=== PATIENT | male | born 1970 | race Caucasian/White ===

== ENCOUNTER 2016-03-11 05:02 | Emergency (ER) | payer MEDICARE, OTHER ==
[2016-03-11] MEDS ORDERED: diphenhydrAMINE HCL 50 MG/ML VIAL IV ONE (05:19)
[2016-03-11] MEDS ORDERED: PROMETHAZINE HCL 50 MG/ML AMPUL IM ONE (05:19)
[2016-03-11] MEDS ORDERED: KETOROLAC TROMETHAMINE 60 MG/2 ML VIAL IM ONE ×2 (05:19→05:21)
[2016-03-11] MEDS ORDERED: diphenhydrAMINE HCL 50 MG/ML VIAL ONE (05:21)
[2016-03-11] MEDS ORDERED: PROMETHAZINE HCL 25 MG/ML AMPUL ONE (05:21)
--- NOTE | 2016-03-11 05:25 | ERNOTE ---
Headache ER HPI - Narrative Date of Service: 03/11/16 - General Presenting Symptoms: headache Time Seen by Provider: 03/11/16 05:17 Source: patient Exam Limitations: no limitations - Immun/Allergies/Home Medications Immunizations: IMMUNIZATION HX Immunizations Up to Date Yes History of Influenza Vaccine Yes Hx Pneumococcal Vaccination No Allergies/Adverse Reactions: Allergies divalproex sodium [From Depakote] Allergy (Verified 02/05/16 13:15) gabapentin Allergy (Verified 02/05/16 13:15) nalbuphine HCl [From Nubain] Allergy (Verified 02/05/16 13:15) topiramate [From Topamax] Allergy (Verified 02/05/16 13:15) Home Medications: HOME MEDICATIONS Phenytoin Sodium Extended [Dilantin] 30 mg PO DAILY 08/28/15 [Last Taken Unknown ] Propranolol HCl [Inderal] 10 mg PO TID 08/28/15 [Last Taken Unknown] - History of Present Illness Narrative: 45-year-old with a history of migraine headaches states he awoke with a severe migraine headache associated with nausea and vomiting. He is yelling out and rocking stating that his headache is severe but no different than previous migraines. Denies other constitutional signs or symptoms Review of Systems - Review of Systems Constitutional: Present: no symptoms reported EYE: Present: no symptoms reported ENT: Present: no symptoms reported Respiratory: Present: no symptoms reported Cardiology: Present: no symptoms reported Gastrointestinal/Abdominal: Present: See HPI Genitourinary: Present: no symptoms reported Musculoskeletal: Present: no symptoms reported Skin: Present: no symptoms reported Neurological: Present: See HPI Endocrine: Present: no symptoms reported Hematologic/Lymphatic: Present: no symptoms reported Psych: Present: no symptoms reported - Patient's Past Medical History Patient History - Medical: Kidney stone, Migraines, Seizures Patient History - Cancer: No Hx of Cancer Patient History - Surgical Procedures: No surgical history - Family History Mother Family History - Medical: History Unknown Family History - Cardiac/Respiratory: History Unknown - Social History Living Situations: home Have you smoked in the past 12 months: Yes Alcohol Use: none Drug Use: none Physical Exam - Physical Exam General Appearance: Present: severe distress Eye Exam: Normal inspection: bilateral, PERRL: bilateral Ears, Nose, Throat: Present: normal ENT inspection, hearing grossly normal, normal pharynx Neck: Present: normal inspection, nontender Respiratory: Present: no respiratory distress, normal breath sounds, no accessory muscle use, chest nontender, lungs clear Cardiovascular/Chest: Present: regular rate, rhythm, no murmur, normal peripheral pulses Gastrointestinal/Abdominal: Present: normal bowel sounds, nontender, nondistended, soft, no organomegaly Rectal Exam: Present: deferred Back Exam: Present: normal inspection, normal range of motion, no CVA tenderness , no vertebral tenderness Extremity Exam: Present: normal inspection, non-tender, no edema, normal range of motion Neurological Exam: Present: alert, oriented, normal mood/affect, no motor/ sensory deficits Skin Exam: Present: normal color, warm/dry Lymphatic Exam: Present: no adenopathy ED Progress - Vital Signs Vital Signs: Vital Signs 03/11/16 05:05 Temperature 34.5 C L Pulse Rate 85 Respiratory 18 Rate Blood Pressure 95/53 O2 Sat by Pulse 99 Oximetry - Progress/Reassessment Chief Complaint: Headache Departure Clinical Impression: Migraine Qualifiers: Migraine type: unspecified Status migrainosus presence: without status migrainosus Intractability: intractable Qualified Code(s): G43.919 - Migraine, unspecified, intractable, without status migrainosus - Departure Disposition: Home self-care Condition: Fair Instructions: Migraine Headache, [id number] Additional Instructions: Follow up with Dr. Faulkner to discuss your migraine treatment Referrals: King Ba MD [Primary Care Provider] -
[2016-03-11] MEDS ORDERED: diphenhydrAMINE HCL 50 MG/ML VIAL IM ONE (05:32)
[2016-03-11 06:13] VITALS: BP 97/55
== END 2016-03-11 06:05 | disposition home or self-care (01) ==
LOC: ER 05:02
DX: G43.919 Migraine, unspecified, intractable, without status migrainosus (principal)

== ENCOUNTER 2016-10-29 00:18 | Emergency (ER) | payer MEDICARE, OTHER ==
[2016-10-29] MEDS ORDERED: METHYLPREDNISOLONE SOD SUCC/PF 125 MG/2 ML VIAL IM ONE (00:30)
[2016-10-29] MEDS ORDERED: PROMETHAZINE HCL 25 MG/ML AMPUL IM ONE (00:30)
[2016-10-29] MEDS ORDERED: HYDROmorphone HCL 1 MG/ML DISP.SYRIN IM ONE (00:30)
[2016-10-29] MEDS ORDERED: KETOROLAC TROMETHAMINE 30 MG/ML VIAL IM ONE (00:30)
[2016-10-29] MEDS ORDERED: HYDROmorphone HCL 1 MG/ML DISP.SYRIN ONE (00:32)
[2016-10-29] MEDS ORDERED: PROMETHAZINE HCL 25 MG/ML AMPUL ONE (00:32)
[2016-10-29] MEDS ORDERED: KETOROLAC TROMETHAMINE 30 MG/ML VIAL ONE (00:32)
[2016-10-29] MEDS ORDERED: METHYLPREDNISOLONE SOD SUCC/PF 125 MG/2 ML VIAL ONE (00:32)
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
[2016-10-29 01:10] VITALS: BP 99/60
== END 2016-10-29 01:11 | disposition home or self-care (01) ==
LOC: ER 00:18
DX: G44.009 Cluster headache syndrome, unspecified, not intractable (principal); F17.200 Nicotine dependence, unspecified, uncomplicated

== ENCOUNTER 2016-12-06 00:46 | Emergency (ER) | payer MEDICARE, OTHER ==
[2016-12-06] MEDS ORDERED: ONDANSETRON HCL/PF 2 MG/ML VIAL IV ONE (01:05)
[2016-12-06] MEDS ORDERED: NORMAL SALINE 1,000 ML IV ONE (01:06)
[2016-12-06] MEDS ORDERED: HYDROmorphone HCL 1 MG/ML DISP.SYRIN IV ONE (01:06)
[2016-12-06] MEDS ORDERED: ORPHENADRINE CITRATE 30 MG/ML VIAL IV ONE (01:07)
[2016-12-06] MEDS ORDERED: ORPHENADRINE CITRATE 30 MG/ML VIAL ONE (01:09)
[2016-12-06] MEDS ORDERED: ONDANSETRON HCL/PF 2 MG/ML VIAL ONE (01:09)
[2016-12-06] MEDS ORDERED: HYDROmorphone HCL 2 MG/ML VIAL ONE (01:09)
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
[2016-12-06] MEDS ORDERED: KETOROLAC TROMETHAMINE 30 MG/ML VIAL IV ONE (01:43)
[2016-12-06] MEDS ORDERED: KETOROLAC TROMETHAMINE 30 MG/ML VIAL ONE (01:44)
[2016-12-06 02:28] VITALS: BP 101/69
== END 2016-12-06 02:22 | disposition home or self-care (01) ==
LOC: ER 00:46
DX: G44.029 Chronic cluster headache, not intractable (principal); I10 Essential (primary) hypertension; F17.200 Nicotine dependence, unspecified, uncomplicated
CPT/HCPCS: 96374; 96375; 99284; J2405

== ENCOUNTER 2016-12-24 06:56 | Emergency (ER) | payer MEDICARE, OTHER ==
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
[2016-12-24] MEDS ORDERED: KETOROLAC TROMETHAMINE 30 MG/ML VIAL IV ONE (07:03)
[2016-12-24] MEDS ORDERED: NORMAL SALINE 1,000 ML IV PRN (07:03)
[2016-12-24] MEDS ORDERED: diphenhydrAMINE HCL 50 MG/ML VIAL IV ONE (07:03)
[2016-12-24] MEDS ORDERED: DEXAMETHASONE SOD PHOSPHATE 10 MG/ML VIAL IV ONE (07:03)
[2016-12-24] MEDS ORDERED: PROCHLORPERAZINE EDISYLATE 5 MG/ML VIAL IV ONE (07:03)
[2016-12-24] MEDS ORDERED: METOCLOPRAMIDE HCL 5 MG/ML VIAL IV ONE (07:03)
[2016-12-24] MEDS ORDERED: KETOROLAC TROMETHAMINE 30 MG/ML VIAL ONE (07:10)
[2016-12-24] MEDS ORDERED: diphenhydrAMINE HCL 50 MG/ML VIAL ONE (07:10)
[2016-12-24] MEDS ORDERED: DEXAMETHASONE SOD PHOSPHATE 10 MG/ML VIAL ONE (07:10)
[2016-12-24] MEDS ORDERED: PROCHLORPERAZINE EDISYLATE 5 MG/ML VIAL ONE (07:10)
[2016-12-24] MEDS ORDERED: METOCLOPRAMIDE HCL 5 MG/ML VIAL ONE (07:11)
[2016-12-24 07:49] VITALS: BP 98/67
== END 2016-12-24 07:58 | disposition home or self-care (01) ==
LOC: ER 06:56
DX: G43.909 Migraine, unspecified, not intractable, without status migrainosus (principal); I10 Essential (primary) hypertension